=== PATIENT | female | born 1955 | race Caucasian/White ===

== ENCOUNTER → 2018-07-30 13:51 | Outpatient (CLI) | payer MEDICARE, SELFPAY ==
--- NOTE | 2018-07-30 14:01 | RAD_ITS ---
STUDY: X-RAY - LUMBAR SPINE REASON FOR EXAM: Female, 63 years old. Back pain x years. Previous fusion. TECHNIQUE: 3 view(s) of the lumbar spine were obtained. COMPARISON: None FINDINGS: Normal lumbar lordosis. There is no substantial scoliosis. There is a normal alignment of the vertebrae. Disc implants with radiopaque markers inside the L4-L5 and L5-S1 disc spaces. They are anchored by threaded metallic screws penetrating the vertebral bodies of L4, L5 and S1. Normal vertebral bodies and endplates. Normal disc space heights. The soft tissue structures are unremarkable. RAD/Lumbar Spine 2 or 3 Views IMPRESSION: 1. Normal postoperative anterior fusion of L4-L5 and L5-S1 disc spaces. 2. No acute abnormality of the lumbar spine. Electronically Signed: Ashutosh Mcdermott MD at 15:40 EST , Service support ,
== END ==
PROVIDERS: Family Provider Family Medicine; PCP Family Medicine; Referring Provider Anesthesiology Pain Medicine; Visit Provider Anesthesiology Pain Medicine
DX: M54.9 Dorsalgia, unspecified (principal)
CPT/HCPCS: 72100

== ENCOUNTER 2020-01-26 08:50 | Day surgery (SDC) | payer MEDICARE, SELFPAY ==
--- NOTE | 2020-01-22 13:49 | EKG12_ITS ---
Test Reason : PRE OP Blood Pressure : / mmHG Vent. Rate : 059 BPM Atrial Rate : 059 BPM P-R Int : 154 ms QRS Dur : 064 ms QT Int : 420 ms P-R-T Axes : 060 006 041 degrees QTc Int : 415 ms Sinus bradycardia Otherwise normal ECG Confirmed by ROSETTE LEDESMA ([id number]), film and video editor JAIMEE VILLALOBOS ([id number]) on 01/25/2020 12:05:21 PM Referred By: Nash Cameron Confirmed By:ROSETTE LEDESMA
[2020-01-22 14:22] LABS: Anion Gap 2 (5-15); BUN 17 mg/dL (7-18); BUN/Creat Ratio 21.5 RATIO (10-20); Calcium,Total 8.9 mg/dL (8.5-10.1); Chloride 109 mmol/L (98-107); Creatinine, Serum 0.79 mg/dL (0.55-1.02); EST Glomerular Filtration Rate 77 mL/min (>60); Est Glom Filt Rate - Afr Amer 94 mL/min (>60); Glucose 89 mg/dL (74-106); Potassium 3.7 mmol/L (3.5-5.1); Sodium Level 139 mmol/L (136-145)
[2020-01-26] VITALS (12 sets, daily range): BP systolic 129–180; BP diastolic 61–92; PULSE 57–77; RESP 16–18; TEMP 35.8–36.5; O2SAT 88–98; BMI 26.9
--- NOTE | 2020-01-26 | ETH_PTH ---
PATIENT: MIKHAIL WILD LOC: [facility] [place] U#:[id number] AGE/SX: 65/F ROOM: RE01/26/[address]: Dr. Abebe Cameron MD : 1955 BED: DIS: 01/26/2020 SPEC #: [id number] RECD: 01/26/20 14:11 STATUS: SHANNAN ROSARIO #: [id number] MELY: 01/26/20 00:[address]: Abebe Cameron DEPT: SURGICAL PATHOLOGY RECD BY: Keyshawn Eaton ENTERED: 01/27/20 12:04 SP TYPE: ETH TISS OTHR DR: Radha Brown PA-C Tissues: A - Ethmoid sinus, NOS B - Ethmoid sinus, NOS Procedures: Special Stain Group I Surgery Specimen Level III GMS Stain (control) HEADER OPERATION: Functional endoscopic sinus surgery, Navigation PRE-OP DIAGNOSIS: Acquired deformity of nose; nasal congestion; deviated nasal septum; hypertrophy of nasal turbinates TISSUE SUBMITTED: A - Right sinus contents, B - Left sinus contents MICROSCOPIC DIAGNOSIS A. Right sinus contents, curettage: Consistent with chronic sinusitis. Minute fragments of bone with no pathologic change. B. Left sinus contents, curettage: Consistent with chronic sinusitis. Mild chronic inflammation. Negative for fungal organisms. Minute fragments of bone with no pathologic change. See comment. AM:katy 01/28/20 COMMENT B. GMS stain with matched control was used in the evaluation of this case. MICROSCOPIC DESCRIPTION Slides are reviewed. GROSS DESCRIPTION A - Received in fixative is one container labeled with the patient's name and designated right sinus contents. The specimen consists of multiple irregular fragments of light to dark maddox, gritty tissue that in aggregate measure 4 x 4 x 0.6 cm. [place] [employer] portions are submitted in one cassette. B - Received in fixative is one container labeled with the patient's name and designated left sinus contents. The specimen consists of multiple irregular fragments of light to dark maddox, gritty tissue that in aggregate measure 6 x 4 x 2 cm. [place] [employer] portions are submitted in one cassette. / AM:katy 01/27/20 TC:2 CPT: 23779 x2, 95198
[2020-01-26] MEDS: Lactated Ringers 1,000 ML 100 ML IV ×2 (09:33→13:34)
--- NOTE | 2020-01-26 10:14 | DCINST_ITS ---
You will use the following diet at home:: No restrictions Your food should be the consistency of: Regular Discharge Activity: May not drive while taking narcotic pain medications. Call your doctor if your incision/area has: Increased Pain/ Swelling Additional Dressing/Incision Instructions:: irrigate the nose 5 times daily with saline spray. mupirocin to incision and to both nostrils twice daily. sleep with head of bed elevated. keep the bridge of your nose dry. however the morning that you have your follow up in clinic, get your nasal cast very wet so it comes off easily in clinic. Allergies/Adverse Reactions: Allergies No Known Allergies Allergy (Verified 01/26/20 09:26) Medications to take at Discharge Omeprazole 40 mg PO DAILY 01/19/20 Sertraline HCl [Zoloft] 50 mg PO DAILY 01/19/20 Primary Care Physician: Radha Brown PA-C [Primary Care Provider] - Test Results: Test results from this visit will be discussed in further detail at your follow- up appointment, if applicable.
--- NOTE | 2020-01-26 10:16 | OP.PCM_ITS ---
Problem List (1) Nasal congestion Status: Chronic (2) Acquired deviated nasal septum Status: Chronic (3) Nasal turbinate hypertrophy Status: Chronic (4) Nasal valve collapse Status: Chronic (5) Chronic pansinusitis Status: Chronic Report of Operation Date of Procedure: 01/26/20 Pre-Operative Diagnosis: 1. nasal congestion. 2. nasal septal deviation. 3. internal nasal valve collapse, right and left. 4. inferior turbinate hypertrophy, right and left. 5. chronic sinusitis. 6. nasal polyps Post-Operative Diagnosis: 1. nasal congestion. 2. nasal septal deviation. 3. internal nasal valve collapse, right and left. 4. inferior turbinate hypertrophy, right and left. 5. chronic sinusitis. 6. nasal polyps Surgery/Procedure Performed:: 1. open septorhinoplasty. 2. correction internal nasal valve collapse, right and left. 3. submucous resection inferior turbinates, right and left. 4. endoscopic total ethmoidectomy including sphenoidotomy, right and left. 5. maxillary antrostomy with removal of contents, right and left. 6. excision nasal polyps, extensive Type of Anesthesia:: General Description of Procedure: on the day of the procedure, after appropriate informed consent was obtained, the patient was brought to the operating room and placed in supine position on the operating table. she was placed under general endotracheal anesthesia. the endotracheal tube was secured, tegaderm was placed over the eyes. the nose was injected with lidocaine/epinephrine. the face was prepped and draped in sterile fashion. an inverted v columellar incision was made with a [place] blade. it traversed into left then right marginal incisions using three point retraction and an iris scissor. the lower lateral cartilages, the scroll regions and the upper lateral cartilages were skeletonized with an iris scissor. the medial crura were lateralized and the anterior septal angle was located and exposed with the [place] tip bovie. submucoperichondrial flaps were created on the le ft then right using a olga elevator. these were taken posteriorly to the bony-cartilaginous junction and inferiorly to the maxillary crest. there was a very dramatic left mid-septal deviation occluding the nasal airway with a large septal spur. a 1.5 cm L-strut was preserved off of the dorsum and the remainder of the septum was removed using a d knife. deviated portions of the perpendicular plate of the ethmoid and vomer were removed using a lauri beckman. the right and left upper lateral cartilages were disarticulated from the nasal septum using a 15 blade. 2mm x 8 mm internal associate professor of counseling grafts were sutured into place bilaterally using 4-0 PDS at multiple points. a flaring stitch was placed with a 4-0 PDS. the head of the right and left inferior turbinates were injected with lidocaine/epinephrine. the head of the left inferior turbinate was incised with a 15 blade, dissected submucosally using a olga elevator, and outfractured using a boies elevator. the head of the right inferior turbinate was incised with a 15 blade, dissected submucosally using a olga elevator, and outfractured using a boies elevator. a 2mm x 8mm columellar strut graft was sutured between the medial crura for tip stability with 4-0 PDS. the submucoperichondrial flaps were closed with multiple 4-0 chromic quilting sutures. the marginal incisions were closed with interrupted 4-0 chromic. the bilateral nasal cavities were decongested with oxymetazoline-soaked pledgets. a zero degree endoscope was used to evaluate the left side. the uncinate process and superior attachment of the middle turbinate were injected with lidocaine/epinephrine. a large amount of polyps were debrided both medial and lateral to the middle turbinate with the microdebrider. the middle turbinate was medialized and an uncinectomy/antrostomy was performed with a olga elevator and a carlton. contents were evacuated. the antrostomy was widened anteriorly using a back biter. the ethmoid bulla was entered bluntly using a suction. a total ethmoidectomy was performed with the microdebrider and an upgoing blakesley. again, numerous polyps were debrided from this area. this was taken superiorly to the skull base and laterally to the lamina. a stankewicz maneuver was performed and no laminar defect was noted. the natural sphenoid os was widedned with the microdebrider and contents were evacuated. an upgoing blakesley was used to probe the frontal recess and polyps were removed. hemostasis was achieved with suction cautery, kandy and surgicel. a zero degree endoscope was used to evaluate the right side. the uncinate process and superior attachment of the middle turbinate were injected with lidocaine/epinephrine. the middle turbinate was medialized and an uncinectomy/antrostomy was performed with a olga elevator and a carlton. contents were evacuated. the antrostomy was widened anteriorly using a back biter. the ethmoid bulla was entered bluntly using a suction. a total ethmoidectomy was performed with the microdebrider and an upgoing blakesley. this was taken superiorly to the skull base and laterally to the lamina. a stankewicz maneuver was performed and no laminar defect was noted. the natural sphenoid os was widedned with the microdebrider and contents were evacuated. an upgoing blakesley was used to probe the frontal recess and widen it. hemostasis was achieved with suction cautery, kandy and surgicel. rivera splints were sutured into place and a dorsal nasal splint was placed. a nasogastric tube was inserted orally and contents were evacuated. the table was rotated 90 degrees toward the anesthesiologist and she was extubated uneventfully. she was transferred to the PACU in stable condition.
[2020-01-26] MEDS: Oxymetazoline 0.05% 1 SPRAY SPRAY.BTL 15 SPRAY (10:54)
[2020-01-26] MEDS: Mupirocin Ointment 22gm Tube 1 APPLIC (13:06)
[2020-01-26] MEDS: HYDROcodone Bitartrate/Apap 5/325 Tablet PO (14:43)
== END 2020-01-26 16:43 | disposition home or self-care (01) ==
LOC: SDC 08:52 → AC 08:57
PROVIDERS: Anesthesiology; PCP Family Medicine; Referring Provider Otolaryngology; Visit Provider Otolaryngology
PROC: (CPT 30140; principal; 2020-01-26 10:00)
PROC: (CPT 30140; 2020-01-26 10:00)
DX: J34.2 Deviated nasal septum (principal); J32.4 Chronic pansinusitis; J34.3 Hypertrophy of nasal turbinates; J33.9 Nasal polyp, unspecified; M95.0 Acquired deformity of nose; R09.81 Nasal congestion; Z11.59 Encounter for screening for other viral diseases; F17.200 Nicotine dependence, unspecified, uncomplicated; K21.9 Gastro-esophageal reflux disease without esophagitis; F32.9 Major depressive disorder, single episode, unspecified; Z79.899 Other long term (current) drug therapy
CPT/HCPCS: 30140; 30420; 31257; 31267; 36415; 80048; 87635; 88304; 88305; 88312; 93005; G2023; J7120; J2405; U0003

== ENCOUNTER → 2023-11-26 | Outpatient (CLI) | payer MEDICARE, SELFPAY ==
--- NOTE | 2023-11-26 08:53 | MRI_ITS ---
HISTORY: Pain, SX 2015, PREVIOUS MRI AND XRAYS TECHNIQUE: Multiplanar and multisequence MR images of the lumbar spine were obtained without intravenous contrast. 149 images. COMPARISON: CR 10/31/2023, CT 06/15/2011. Prior MRI requested but unavailable at time of dictation. FINDINGS: VERTEBRAE: Vertebral body heights maintained. Mild degenerative endplate changes of L3-4. Postoperative changes of L4-5 and L5-S1 with artifact from anterior spinal fusion hardware. No other significant bone marrow signal abnormality. ALIGNMENT: No anterior or posterior subluxation. CONUS: Normal morphology and position of the conus medullaris at L1. INTERVERTEBRAL DISCS: T12-L1: No significant signal abnormality, posterior disc protrusion, central canal stenosis, or foraminal narrowing based on the sagittal images. L1-2: No significant signal abnormality, posterior disc protrusion, central canal stenosis, or foraminal narrowing. L2-3: Minimal disc bulge and mild facet arthropathy resulting in mild bilateral foraminal narrowing. No significant central canal stenosis. L3-4: Decompressive laminectomy. Mild disc bulge with annular fissure and facet arthropathy. No significant central canal stenosis. Moderate bilateral foraminal narrowing with bilateral L3 nerve root abutment. L4-5, L5-S1: Interbody fusion material. No recurrent posterior disc protrusion, central canal stenosis, or significant foraminal narrowing. SOFT TISSUES: Mild posterior edema. MRI/Spine Lumbar (Routine) IMPRESSION: Mild degenerative change of L2-3 resulting in mild bilateral foraminal narrowing. Mild disc bulge with facet arthropathy and postoperative change at L3-4 resulting in moderate bilateral foraminal narrowing with bilateral nerve root abutment. L4-5 and L5-S1 spinal fusion without recurrent disc protrusion or significant spinal canal stenosis. Electronically Signed: Argelia Mehta MD at 11:30 EDT ,
== END | disposition home or self-care (01) ==
PROVIDERS: PCP Family Medicine; Referring Provider Orthopaedic Surgery Orthopaedic Surgery of the Spine; Visit Provider Orthopaedic Surgery Orthopaedic Surgery of the Spine
DX: M54.16 Radiculopathy, lumbar region (principal)
CPT/HCPCS: 72148

== ENCOUNTER → 2024-02-20 | Outpatient (CLI) | payer MEDICARE, SELFPAY ==
[2024-02-20 13:20] LABS: Amphetamine Urine VISTA NEGATIVE (<1000 ng/mL); Barbiturate Urine VISTA NEGATIVE (< 200 ng/mL); Benzodiazepine Urine VISTA NEGATIVE (< 200 ng/mL); Cocaine Urine VISTA NEGATIVE (< 300 ng/mL); Ecstacy Urine VISTA NEGATIVE (< 500 ng/mL); Methadone Urine VISTA NEGATIVE (< 300 ng/mL); PCP Urine VISTA NEGATIVE (< 25 ng/mL); THC Urine VISTA NEGATIVE (< 50 ng/mL); Vista UDS pH Range 4
== END | disposition home or self-care (01) ==
PROVIDERS: Referring Provider Anesthesiology; Visit Provider Anesthesiology
DX: F11.20 Opioid dependence, uncomplicated (principal)
CPT/HCPCS: 80307

== ENCOUNTER → 2024-05-13 | Outpatient (CLI) | payer MEDICARE, SELFPAY ==
--- NOTE | 2024-05-13 13:27 | RAD_ITS ---
STUDY: X-RAY - LEFT KNEE REASON FOR EXAM: Female, 69 years old. PAIN TECHNIQUE: 4 view(s) of the knee. COMPARISON: None. FINDINGS: Normal visualized distal femur. Normal visualized proximal tibia and fibula. Normal proximal tibiofibular articulation. There is mild degenerative arthrosis of the medial femorotibial compartment. Normal lateral femorotibial compartment. Normal patellofemoral articulation. The soft tissue structures are unremarkable. RAD/Knee 4 or More Views IMPRESSION: Degenerative arthrosis. Electronically Signed: Jose May MD at 10:58 EST ,
--- NOTE | 2024-05-13 13:27 | RAD_ITS ---
STUDY: X-RAY - RIGHT KNEE REASON FOR EXAM: Female, 69 years old. PAIN TECHNIQUE: 4 view(s) of the knee. COMPARISON: None. FINDINGS: Normal visualized distal femur. Normal visualized proximal tibia and fibula. Normal proximal tibiofibular articulation. Normal medial femorotibial compartment. Normal lateral femorotibial compartment. Normal patellofemoral articulation. The soft tissue structures are unremarkable. RAD/Knee 4 or More Views IMPRESSION: Normal x-ray examination of the knee. Electronically Signed: Jose May MD at 10:57 EST ,
== END | disposition home or self-care (01) ==
LOC: RAD 13:26
PROVIDERS: Referring Provider Anesthesiology; Visit Provider Anesthesiology
DX: M25.561 Pain in right knee (principal); M25.562 Pain in left knee
CPT/HCPCS: 73564

== ENCOUNTER → 2024-06-03 | Outpatient (CLI) | payer MEDICARE, SELFPAY ==
--- NOTE | 2024-06-03 15:18 | NEURO ---
NCS and/or EMG Patient Report Ordering Doctor: Walter Santamaria DATE OF SERVICE: 06/03/24 Holly presents with complaints of numbness and tingling in the lower legs. She has intermittent lower back pain. Electrodiagnostic findings: Right peroneal motor nerve demonstrates normal distal latency, amplitude and conduction velocity. Left peroneal motor nerve demonstrates normal distal latency, amplitude and conduction velocity tibial motor response within normal limits bilaterally. Normal peroneal and tibial F?waves. Sensory responses are within normal limits. Needle EMG testing was performed the lower limbs. All muscles tested showed no evidence of denervation with normal motor unit action potentials. Electrodiagnostic impression: This is a normal electrodiagnostic study of the lower limbs. There is no electrodiagnostic evidence for peripheral polyneuropathy or lumbosacral radiculopathy. Multi Select Codes Neurology Neurology Interp Codes: 87245-48 Musc test done w/n test comp (interp) (2) and 70176-38 Nrv cndj test 9-10 studies (interp)
== END | disposition home or self-care (01) ==
PROVIDERS: Referring Provider Anesthesiology; Visit Provider Anesthesiology
DX: M54.16 Radiculopathy, lumbar region (principal)
CPT/HCPCS: 95886; 95911

== ENCOUNTER → 2025-02-01 | Outpatient (CLI) | payer MEDICARE, SELFPAY ==
[2025-02-01 13:45] LABS: Vitamin B12 909 pg/mL (180-914)
[2025-02-03 13:08] LABS: Vitamin D 1,25-Dihydroxy 52.4 pg/mL (24.8-81.5)
[2025-02-04 19:07] LABS: Folate, Hemolysate Test 312.0 ng/mL (Not Estab.); Folate, RBC (Hct) Test 38.6 % (34.0-46.6); Folates, RBC Test 808 ng/mL (>498); Vitamin B1, Thiamine 111.1 nmol/L (66.5-200.0)
== END | disposition home or self-care (01) ==
PROVIDERS: Referring Provider Psychiatry & Neurology Neurology; Visit Provider Psychiatry & Neurology Neurology
DX: I10 Essential (primary) hypertension (principal); M54.16 Radiculopathy, lumbar region
CPT/HCPCS: 36415; 82607; 82652; 82747; 83883; 84425; 84443; 85014